=== PATIENT | female | born 1950 | race African-American/Black ===

== ENCOUNTER → 2017-08-14 | Outpatient (CLI) | payer BC, MEDICARE ==
--- NOTE | 2017-08-14 10:20 | RAD ---
DATE: 08/14/2017 EXAM: DIGITAL SCREEN BILAT W/CAD HISTORY: Routine screening COMPARISON: 07/31/2016 This study was interpreted with the benefit of Computerized Aided Detection (CAD). The breast parenchyma demonstrates scattered fibroglandular densities. Findings: The fibroglandular pattern in the breasts is nodular in character. No new or enlarging breast densities are seen. An old breast biopsy marker is again noted laterally on the right. There are coarse benign type calcifications. No suspicious microcalcifications have developed. IMPRESSION: Stable mammograms without evidence of malignancy. BI-RADS CATEGORY: 2 BENIGN FINDING(S) RECOMMENDED FOLLOW-UP: 12M 12 MONTH FOLLOW-UP PQRS compliance statement: Patient information was entered into a reminder system with a target due date for the next mammogram. Mammography is a sensitive method for finding small breast cancers, but it does not detect them all and is not a substitute for careful clinical examination. A negative mammogram does not negate a clinically suspicious finding and should not result in delay in biopsying a clinically suspicious abnormality. "Our facility is accredited by the [employer] Mammography Program."
== END | disposition home or self-care (01) ==
LOC: MAMMO 09:22
PROVIDERS: ATTEND Family Medicine
DX: Z12.31 Encounter for screening mammogram for malignant neoplasm of breast (principal)
CPT/HCPCS: G0202; 77067

== ENCOUNTER → 2018-08-05 | Outpatient (CLI) | payer BC, MEDICARE ==
[~2018-08-05] MED LIST: ACET325T9 PO; AMLO5TAB7 PO; ASPI325T8 PO; CALC600T4 PO; CELE200C PO; FERR325T14 PO; MULT1TAB52 PO; TELM1TAB PO
[2018-08-05 09:31] LABS: BASO % 1 % (0-3); EOS # 0.1 x10^3/uL (0.0-0.7); EOS % 2 % (0-3); HEMATOCRIT 40.6 % (36.0-47.0); HEMOGLOBIN 13.6 g/dL (12.0-15.5); LYMPH # 1.7 x10^3/uL (1.0-4.8); LYMPH % 34 % (24-48); MEAN CORPUSCULAR HEMOGLOBIN 27 pg (25-35); MEAN CORPUSCULAR HGB CONC 34 g/dL (31-37); MEAN CORPUSCULAR VOLUME 82 fL (79-100); MONO # 0.4 x10^3/uL (0.0-1.1); MONO % 8 % (0-9); NEUT # 2.8 x10^3uL (1.8-7.7); NEUT % 56 % (31-73); PLATELET COUNT 261 x10^3/uL (140-400); RED BLOOD COUNT 4.95 x10^6/uL (3.50-5.40); RED CELL DISTRIBUTION WIDTH 14.1 % (11.5-14.5); WHITE BLOOD COUNT 5.1 x10^3/uL (4.0-11.0)
[2018-08-05 09:32] LABS: ALBUMIN 3.8 g/dL (3.4-5.0); CALCIUM 9.5 mg/dL (8.5-10.1); CREATININE 0.9 mg/dL (0.6-1.0); GFR 75.8; POTASSIUM 4.2 mmol/L (3.5-5.1)
[2018-08-05 10:03] LABS: PROTHROMBIN TIME PATIENT 13.7 SEC (11.7-14.0)
--- NOTE | 2018-08-05 13:37 | EKG ---
[facility] [address] [place] [address] Test Date: 2018-08-05 Test Time: 13:28:35 Pat Name: MICHELLE PARDO Department: Room: Gender: F Corporate Quality Engineer: : [id number] Requested By: ERICK BOLTON Order Number: [id number] Reading MD: Tony Watson MD Measurements Intervals [place] Rate: 82 P: 38 MS: 184 QRS: 52 QRSD: 66 T: 69 QT: 390 QTc: 459 Interpretive Statements SINUS RHYTHM VENTRICULAR PREMATURE COMPLEX(ES) CONSIDER PRIOR ANTEROSEPTAL INFARCT Electronically Signed On 08-05-2018 15:45:30 CDT by Tony Watson MD
[2018-08-05 13:58] LABS: BILIRUBIN,URINE NEGATIVE (NEG); CLARITY,URINE CLEAR; COLOR,URINE YELLOW; NITRITE,URINE NEGATIVE (NEG); PH,URINE 7.5; PROTEIN,URINE NEGATIVE (NEG-TRACE); UROBILINOGEN,URINE 0.2 mg/dL (0.2 mg/dL)
[2018-08-05 14:19] LABS: BACTERIA,URINE FEW /HPF (0-FEW); RBC,URINE 0 /HPF (0-2); SQUAMOUS EPITHELIAL CELL,UR OCC /LPF; WBC,URINE OCC /HPF (0-4)
--- NOTE | 2018-08-05 15:34 | RAD ---
PA and lateral chest x-ray without comparison for preop knee surgery, hypertension. FINDINGS: The lungs are clear. The cardiomediastinum is grossly unremarkable. Atherosclerotic calcifications of the abdominal aorta are noted. No significant soft tissue or osseous abnormalities are seen. IMPRESSION: 1. No acute cardiopulmonary abnormality. Electronically signed by: Tony Medina MD (08/05/2018 3:31 PM) [facility]
== END | disposition home or self-care (01) ==
LOC: SURGPAT 13:41
PROVIDERS: ATTEND Orthopaedic Surgery
DX: Z01.818 Encounter for other preprocedural examination (principal); M17.11 Unilateral primary osteoarthritis, right knee; I10 Essential (primary) hypertension; I70.0 Atherosclerosis of aorta; I49.3 Ventricular premature depolarization
CPT/HCPCS: 36415; 71046; 80048; 81001; 82040; 82306; 85025; 85610; 85651; 85730; 87086; 87641; 93005

== ENCOUNTER → 2018-08-13 | Outpatient (CLI) | payer BC, MEDICARE ==
--- NOTE | 2018-08-13 16:09 | CARD ---
MR#: [id number] Date of Study: 08/13/2018 Ordering Physician: WALKER FORTE, Referring Physician: WALKER FORTE, Tech: Jana Hardin APPROVED REPORT EXAM: Two-dimensional and M-mode echocardiogram with Doppler and color Doppler. Other Information Quality : GoodHR: 71bpm Technically limited study due to body habitus. INDICATION Pre-Op RISK FACTORS Hypertension 2D DIMENSIONS Left Atrium(2D)3.4 (1.6-4.0cm)IVSd1.1 (0.7-1.1cm) Aortic Root(2D)2.9 (2.0-3.7cm)LVDd4.7 (3.9-5.9cm) LVOT Diameter2.1 (1.8-2.4cm)PWd1.0 (0.7-1.1cm) LVDs2.7 (2.5-4.0cm)FS (%) 42.1 % SV75.5 mlLVEF(%)73.0 (>50%) Aortic Valve AoV Peak Jaquan.114.4cm/sAoV VTI24.1cm AO Peak GR.5.2mmHgLVOT Peak Jaquan.90.4cm/s LVOT VTI 22.09cmAO Mean GR.3mmHg [place] (VMAX)2.35aq6TVW (VTI)3.15cm2 Mitral Valve MV E Ypqhotul06.7cm/sMV DECEL LZPD268ld MV A Ocokdibc78.4cm/sMV LQB19qr E/A Ratio0.8MVA (PHT)3.19cm2 TDI E/Lateral E'6.0E/Medial E'6.6 Pulmonary Valve PV Peak Krgfoumv71.8cm/sPV Peak Grad.4mmHg Tricuspid Valve TR P. Kzkicxpe599nt/sRAP SMNNQONK0fsXl TR Peak Gr.27vgGbRXNE05tvHn Pulmonary Vein S1 Jphyiiqm13.3cm/sD2 Cukqaqcy07.3cm/s PVa wqabdkct297dpct LEFT VENTRICLE The left ventricle is normal size. There is borderline concentric left ventricular hypertrophy. The l eft ventricular systolic function is normal and the ejection fraction is within normal range. The Eje ction Fraction is 60-65%. There is normal LV segmental wall motion. Transmitral Doppler flow pattern is Grade I-abnormal relaxation pattern. RIGHT VENTRICLE The right ventricle is normal size. There is normal right ventricular wall thickness. The right ventr icular systolic function is normal. ATRIA The left atrium size is normal. The right atrium size is normal. The interatrial septum is intact wit h no evidence for an atrial septal defect or patent foramen ovale as noted on 2-D or Doppler imaging. AORTIC VALVE The aortic valve is calcified but opens well. Doppler and Color Flow revealed trace aortic regurgitat ion. Calculated aortic valve area is 3 cm2 with maximum pressure gradient of 5 mmHg and mean pressure gradient of 3 mmHg. MITRAL VALVE The mitral valve is thickened but opens well. There is no mitral valve stenosis. Doppler and Color-fl ow revealed trace mitral regurgitation. TRICUSPID VALVE The tricuspid valve is not well visualized. Doppler and Color Flow revealed trace tricuspid regurgita tion. There is no tricuspid valve stenosis. PULMONIC VALVE The pulmonic valve is not well visualized. Doppler and Color Flow revealed no pulmonic valvular regur gitation. There is no pulmonic valvular stenosis. GREAT VESSELS The aortic root is normal in size. The IVC is normal in size and collapses >50% with inspiration. PERICARDIAL EFFUSION There is no evidence of significant pericardial effusion. Critical Notification Critical Value: No <Conclusion> There is borderline concentric left ventricular hypertrophy. The left ventricular systolic function is normal and the ejection fraction is within normal range. Th e Ejection Fraction is 60-65%. There is normal LV segmental wall motion. Signed by : Tony Watson, Electronically Approved : 08/13/2018 16:08:31
== END | disposition home or self-care (01) ==
LOC: ECHO 14:25
PROVIDERS: ATTEND Internal Medicine Cardiovascular Disease
DX: R94.31 Abnormal electrocardiogram [ECG] [EKG] (principal); I11.9 Hypertensive heart disease without heart failure
CPT/HCPCS: 93306

== ENCOUNTER → 2018-08-16 | Outpatient (CLI) | payer BC, MEDICARE ==
--- NOTE | 2018-08-16 13:20 | RAD ---
DATE: 08/16/2018 EXAM: DIGITAL SCREEN BILAT W/CAD HISTORY: Routine screening COMPARISON: 08/14/2017 This study was interpreted with the benefit of Computerized Aided Detection (CAD). Breast Density: SCATTERED The breast parenchyma shows scattered fibroglandular densities. Breast parenchyma level B. FINDINGS: Small smooth nodules are again noted in both breasts. No breast biopsy marker is present laterally on the right. No new or enlarging breast densities are seen. A coarse benign type calcification is again noted on the right. No suspicious microcalcifications have developed. IMPRESSION: Stable mammograms without evidence of malignancy. BI-RADS CATEGORY: 2 BENIGN FINDING(S) RECOMMENDED FOLLOW-UP: 12M 12 MONTH FOLLOW-UP PQRS compliance statement: Patient information was entered into a reminder system with a target due date for the next mammogram. Mammography is a sensitive method for finding small breast cancers, but it does not detect them all and is not a substitute for careful clinical examination. A negative mammogram does not negate a clinically suspicious finding and should not result in delay in biopsying a clinically suspicious abnormality. "Our facility is accredited by the [employer] Mammography Program."
== END | disposition home or self-care (01) ==
LOC: MAMMO 11:58
PROVIDERS: ATTEND Family Medicine
DX: Z12.31 Encounter for screening mammogram for malignant neoplasm of breast (principal)
CPT/HCPCS: 77067

== ENCOUNTER 2018-08-20 06:35 | Inpatient (IN) | payer BC, MEDICARE ==
--- NOTE | 2018-08-19 13:01 | PDOC1 ---
History and Physical Date of Admission Date of Admission DATE: 08/20/18 Identification/Chief Complaint Chief Complaint right knee osteoarthritis pain Source Source: Chart review History of Present Illness History of Present Illness The patient is a 67 y/o female with right knee pain. Patient has received three Orthovisc injections or corticosteroid or viscosupplementation. She states she has not had symptomatic relief from the injections and is ready for total knee arthroplasty. She presents ambulating without assistive devices. Patient also notes she fell 4 days ago and has increased concern for falls. Past Medical History Cardiovascular: HTN Past Surgical History Past Surgical History: No pertinent history Family History Family History: Hypertension Social History Smoke: No ALCOHOL: none Drugs: None Current Medications Current Medications Current Medications Ondansetron HCl (Zofran) 4 mg PRN Q6HRS PRN IV NAUSEA/VOMITING; Start 08/20/18 at 07:00; Stop 08/21/18 at 06:59 Fentanyl Citrate (Fentanyl 2ml Vial) 25 mcg PRN Q5MIN PRN IV MILD PAIN; Start 08/20/18 at 07:00; Stop 08/21/18 at 06:59 Fentanyl Citrate (Fentanyl 2ml Vial) 50 mcg PRN Q5MIN PRN IV MODERATE TO SEVERE PAIN; Start 08/20/18 at 07:00; Stop 08/21/18 at 06:59 Ringer's Solution 1,000 ml @ 30 mls/hr Q24H IV ; Start 08/20/18 at 07:00; Stop 08/20/18 at 18:59 Lidocaine HCl (Xylocaine-Mpf 1% 2ml Vial) 2 ml PRN 1X PRN ID IV START; Start 08/20/18 at 07:00; Stop 08/21/18 at 06:59 Prochlorperazine Edisylate (Compazine) 5 mg PACU PRN PRN IV NAUSEA, MRX1; Start 08/20/18 at 07:00; Stop 08/21/18 at 06:59 Active Scripts Active Reported Calcium (Calcium Carbonate) 600 Mg Tablet 600 Mg PO DAILY Multivitamins (Multivitamin) 1 Each Tablet 1 Each PO DAILY Ferrous Sulfate 325 Mg Tablet 325 Mg PO DAILY Micardis Hct 80-25 Mg Tablet (Telmisartan/Hydrochlorothiazid) 1 Each Tablet 0.5 Tab PO DAILY Amlodipine Besylate 5 Mg Tablet 5 Mg PO DAILY Aspirin 325 Mg Tablet 325 Mg PO Tylenol (Acetaminophen) 325 Mg Tablet 325 Mg PO Allergies Allergies: Coded Allergies: shellfish derived (Verified Allergy, Intermediate, Anaphylaxis, 08/05/18) hydrocodone (Verified Adverse Reaction, Intermediate, Itching, 08/05/18) Physical Exam General: Alert, Oriented X3, Cooperative, No acute distress HEENT: Atraumatic, EOMI Lungs: Normal air movement Heart: RRR Abdomen: Soft Extremities: No clubbing, No cyanosis, Normal pulses, Other (RIGHT KNEE: mildly antalgic gait. There is varus alignment. No masses. No detectable effusion. Tenderness on the medial and lateral joint lines. Range of motion is 3 -100 degrees. There is pain at the extremes of motion. Light touch sensation is intact. No edema and no varicosities.) Skin: No rashes, No breakdown, No significant lesion Neuro: Normal speech, Sensation intact Psych/Mental Status: Mental status NL, Mood NL Images Images IMAGING REPORT Joint survey, hips knees and ankles Clinical information: Preoperative for total knee arthroplasty Comparison: None. Findings Bones: The angle between the right hip-ankle mechanical axis and the femoral shaft is 5 degrees. The angle between the left hip-ankle mechanical axis and the femoral shaft is 5 degrees. The right hip to ankle alignment shows a degrees of varus The left hip to ankle alignment shows 5 degrees of varus. Joints: There is narrowing of the right knee joint medially. There is narrowing of the left knee joint medially. The hips and ankles show minimal degenerative changes. Soft tissue: Normal. Impression: Varus alignment of the right lower extremity Varus alignment of the left lower extremity. The difference between the mechanical axis and femoral shaft anatomic axis is 5 degrees bilaterally. Dictated and Signed Using Voice Recognition Software Edson Spencer MD VTE Prophylaxis Ordered VTE Prophylaxis Devices: Yes VTE Pharmacological Prophylaxi: Yes Assessment/Plan Assessment/Plan Right knee osteoarthritis pain. The patient is a 67 year old female with right knee osteoarthritis. She would like to proceed with total knee replacement. We will send them to the [place] [facility] preoperatively. We discussed the risks and benefits of knee replacement including bleeding, infection, post-operative stiffness, instability, jaciel-prosthetic fracture, dvt and PE or other potential surgical or anesthetic complications. All questions were answered. Patient would like to proceed with right total knee arthroplasty to improve the pain with activity. Followup 10-14 days after surgery. JOSUE TORRES Aug 19, 2018 13:01
[~2018-08-20] VITALS: Ht 156.2 cm; Wt 63.5 kg
[2018-08-20] VITALS (8 sets, daily range): BP systolic 99–136; BP diastolic 53–76
[~2018-08-20 06:35] MED LIST changes: +ACETAMINOPHEN 500 MG TABLET PO PRN; -CELE200C PO; +CELECOXIB 100 MG CAPSULE. PO PRN; +MORPHINE SULFATE 5 MG, KETOROLAC 30MG VIAL 30 MG, ROPIVacaine 0.5% PF 60 ML, EPINEPHrin... INT ART ONE; +TRANEXAMIC ACID 1,000 MG in IV NS 50ML -- 1ST BAG INJ ONE
[2018-08-20] MEDS ORDERED: LIDOCAINE 1% PF 2 ML VIAL. ID PRN (07:00)
[2018-08-20] MEDS ORDERED: ONDANSETRON PF 4 MG/2 ML VIAL. IV PRN (07:00)
[2018-08-20] MEDS ORDERED: IV RINGERS,LACTATED 1000ML 1,000 ML IV SCH (07:00)
[2018-08-20] MEDS ORDERED: fentaNYL PF VIAL 100 MCG/2 ML VIAL IV PRN ×3 (07:00→11:45)
[2018-08-20] MEDS ORDERED: PROCHLORPERAZINE 10 MG/2 ML VIAL. IV PRN ×2 (07:00→11:45)
[2018-08-20] MEDS ORDERED: TOBRAMYCIN POWDER 1.2 GM VIAL. ONE (07:08)
[2018-08-20] MEDS ORDERED: VANCOMYCIN 1 GM VIAL. ONE (07:08)
[2018-08-20] MEDS ORDERED: CELE200C PO (07:45)
[2018-08-20] MEDS ORDERED: TRANEXAMIC ACID 1,000 MG in IV NS 50ML -- 2ND BAG INJ ONE (08:00)
[2018-08-20] MEDS ORDERED: MIDAZOLAM HCL/PF 2 MG/2 ML VIAL. ONE (09:07)
[2018-08-20] MEDS ORDERED: PROPOFOL 20 ML IV ONE (09:08)
[2018-08-20] MEDS ORDERED: fentaNYL PF VIAL 250 MCG/5 ML VIAL ONE (09:08)
[2018-08-20] MEDS ORDERED: LIDOCAINE 2% PF Vial for OR 5 ML VIAL. ONE (09:08)
[2018-08-20] MEDS ORDERED: PHENYLEPHRINE in 0.9% NACL PF 1 MG/10 ML SYRINGE. IV ONE (09:34)
[2018-08-20] MEDS ORDERED: ONDANSETRON PF 4 MG/2 ML VIAL. ONE (09:40)
[2018-08-20] MEDS ORDERED: SEVOFLURANE > 120 MINUTES. IH ONE (09:40)
[2018-08-20] MEDS ORDERED: DEXAMETHASONE SOD PHOS 20 MG/5 ML VIAL. ONE (09:40)
[2018-08-20] MEDS ORDERED: ePHEDrine PF IN SALINE 50 MG/5 ML DISP.SYRIN IV ONE (09:51)
--- NOTE | 2018-08-20 11:24 | PDOC4 ---
Operative Note Operative Note Date of Procedure: August 20, 2018 Pre-Op Diagnosis: Osteoarthritis right knee Post-Op Diagnosis: Osteoarthritis right knee Procedure: right total knee arthroplasty Surgeon: Erick Spencer MD Autoglazier: Maddison Chamberlain PA-C Anesthesia: General EBL: 100 mL Specimens Obtained: right knee bone and soft tissue Complications: none Implant Company: [email or web address] Drains: hemovac plus pain catheter Tourniquet time: 43 Minutes Tourniquet Pressure: 350 mm Hg Indications for Procedure: Arthritis pain unrelieved by nonoperative management Findings: Severe osteoarthritis with bone on bone contact medially with eburnated and red appearing medial tibial bone, and similar eburnation into the marrow in the trochlea. Large osteophytes throughout. Bone quality suspicious for osteoporosis, softer than expected at this age. Implants used: Size 3 right bicruciate stabilized Journey II BCS Oxinium femoral component, size 3 right Journey nonporous tibial baseplate, size 3-4 13 mm right Journey II BCS XLPE articular insert, 32 mm oval Stephenie II resurfacing patellar component Procedure in Detail: The patient was identified in the preoperative holding area, and the correct right lower extremity was marked by me. The patient was taken to the operating room where the patient was anesthetized by the Department of Anesthesia. Preoperative antibiotics were given intravenously. Tranexamic acid 1 g was given intravenously for intraoperative hemostasis. A "time-out" procedure was performed. The patient was positioned supine on the operative table with a tourniquet on the upper right thigh. The right lower limb was thoroughly scrubbed, then sterile surgical prep solution was applied, and the limb was draped in sterile fashion. An impervious stockinet and adhesive drape were used such that the skin was entirely covered. An Page leg lee was used. The operating team wore personal exhaust-ventilated hoods. The limb exsanguinated with an Esmarch bandage, and the tourniquet was inflated. A midline skin incision was made with a scalpel using the patella and tibial tubercle as landmarks. Electrocautery was used for hemostasis. My senior underwriting assistant used rake retractors. A medial parapatellar arthrotomy incision was used with extension into the distal quadriceps tendon. The patella was retracted laterally and Hohmann retractors were now used by my senior underwriting assistant. Excess synovium, the menisci, and the cruciate ligaments were resected sharply. The patella was assessed and excess synovium and osteophytes around the patellar articulation were removed. The patella was measured with a caliper, cut freehand with a saw using caliper measurements, sized, and then drilled for an oval three-pegged patella component. Periarticular anesthetic injection was used in the suprapatellar pouch and distal quadriceps muscle. Whitesides's line and the transepicondylar axis were marked on the femur. An intra-medullary 5 degree cutting guide was pinned to the femur, and a distal femoral cut was made with an oscillating saw. No additional distal femoral resection was required. My senior underwriting assistant held Hohmann retractors and an [facility] retractor to protect the medial and lateral collateral ligaments, the patellar tendon, the skin and the other soft tissues. A posterior referencing guide was applied with external rotation of 3 to match Whitesides line. A 5-in-1 Journey II cutting guide was then applied and pinned to the femur. The posterior, anterior, and all chamfer cuts were made with the oscillating saw. An extramedullary guide was pinned to the tibia and rotational alignment and the planned resection thickness assessed. An external alignment ashanti was used to verify the planned cut in the varus-valgus plane and regarding posterior slope referencing the tibial tubercle, the tibial shaft, the ankle joint, and the second metatarsal. The upper tibia was cut made with an oscillating saw. My senior underwriting assistant held Hohmann retractors and a posterior cruciate ligament retractor to protect the medial and lateral collateral ligaments, the patellar tendon, the skin, the peroneal nerve and the other soft tissues. The upper tibia was sized with a trial baseplate. The posterior compartment was cleared of osteophytes and loose bodies. Periarticular anesthetic injection was used in the posterior compartment. The box cut for a posterior stabilized component was made. A preliminary reduction was performed with a trial femur, trial tibial baseplate and trial polyethylene. Soft-tissue balancing was now performed, and extension and rotation of the alignments was checked using a guide ashanti in the tibial trial and a guide pin in the femur. No additional releases were required. The stability was assessed using different thicknesses of tibial articular surface to find satisfactory stability and good range of motion. The rotation of the tibial component was marked on the upper tibia. Final trial reduction was now performed verifying patella tracking and tibiofemoral stability and alignment. The tibia preparation was completed with a drill, saw, and fin punch at the previously noted rotation. The final implants were verified and opened. Outer gloves were changed by the operating team. The bone cuts were washed thoroughly with the [place] InterPulse device and dried. I asked Ms. Chamberlain to leave the room while the cement was mixed. Two packages of Contreras + Nephew Rally MV bone cement were mixed in powdered form with Vancomycin 1gm and Tobramycin 1.2 gm, and then vacuum-mixed with the monomer, and placed into a cement gun. The cut surfaces of the bone were thoroughly dried with Mcgovern-tip suction and with laparotomy sponges for cement interdigitation. The final components were cemented into place. The knee was kept at full extension while the cement hardened, and excess cement was removed. Tranexamic acid 1 g was redosed intravenously for additional intraoperative hemostasis. The tourniquet was released, and electrocautery was used for hemostasis. A final periarticular anesthetic injection was used for pain relief. Ms. Chamberlain scrubbed, hooded, gowned, gloved, and returned to the case. A final check of ultum-fn-gvohoo and stability was made, and the polyethylene implant final size was chosen. The polyethylene implant was secured to the tibial baseplate, and the knee was reduced a final time and range of motion and stability was confirmed. Thorough irrigation was used. Hemovac and pain catheter were used.The arthrotomy was closed with interrupted [id number]-yk-uhnul # 1 PDS suture. The arthrotomy incision was then run with #1 STRATAFIX Symmetric PDS Plus Knotless suture. The subcutaneous tissues were closed with #2-0 Vicryl by my senior underwriting assistant. The skin was approximated with lisa by my senior underwriting assistant. The skin incision was then covered and reinforced with EUFEMIA single use negative pressure wound therapy dressing by my senior underwriting assistant. Needle and sponge counts were correct. There were no apparent complications. The patient returned to the recovery room in stable condition. ERICK SPENCER MD Aug 20, 2018 11:24
[2018-08-20] MEDS ORDERED: ZOLPIDEM 5 MG TABLET. PO PRN (11:45)
[2018-08-20] MEDS ORDERED: PROCHLORPERAZINE 5 MG TABLET. PO PRN (11:45)
[2018-08-20] MEDS ORDERED: oxyCODONE/APAP 5/325 1 TAB TABLET PO PRN (11:45)
[2018-08-20] MEDS ORDERED: MORPHINE SULFATE 10 MG/ML VIAL. IV PRN (11:45)
[2018-08-20] MEDS ORDERED: METOCLOPRAMIDE HCL 10 MG/2 ML VIAL. IV PRN (11:45)
[2018-08-20] MEDS ORDERED: oxyCODONE/APAP 7.5/325 1 TAB TABLET PO PRN (11:45)
[2018-08-20] MEDS ORDERED: diphenhydrAMINE HCL 25 MG CAPSULE PO PRN (11:45)
[2018-08-20] MEDS ORDERED: 0.9 % SODIUM CHLORIDE 10 ML DISP.SYRIN. IV PRN (11:45)
[2018-08-20] MEDS ORDERED: MORPHINE SULFATE 2 MG/ML VIAL. IV PRN (11:45)
[2018-08-20] MEDS ORDERED: DEXTROSE 50% 25 GM / 50ML DISP.SYRIN. IV PRN (11:45)
[2018-08-20] MEDS ORDERED: traMADol 50 MG TABLET PO PRN (11:45)
[2018-08-20] MEDS ORDERED: MORPHINE SULFATE 4 MG/ML VIAL. IV PRN ×2 (11:45)
[2018-08-20] MEDS ORDERED: CALCIUM CARBONATE 500 MG TAB.CHEW PO PRN (11:45)
[2018-08-20] MEDS ORDERED: fentaNYL PF VIAL 100 MCG/2 ML VIAL ONE (12:00)
[2018-08-20] MEDS: fentaNYL PF VIAL 100 MCG/2 ML VIAL IV PRN ×2 (12:05→12:55)
--- NOTE | 2018-08-20 12:11 | RAD ---
Two-view right knee dated 08/20/2018. No comparison available. Clinical data indication: Post knee arthroplasty. FINDINGS: AP and lateral views obtained. Interval total knee arthroplasty. Femoral and tibial components are intact. No periprosthetic fracture or malalignment. Overlying skin lisa with soft tissue swelling and soft tissue gas. Postsurgical changes of the patella. Suprapatellar drain in place. IMPRESSION: Status post right knee arthroplasty. Electronically signed by: Nguyễn aGmboa MD (08/20/2018 12:08 PM) [facility]
[2018-08-20] MEDS: IV DEXTROSE 5 %-0.45 % NACL 1,000 ML IV SCH (14:47)
[2018-08-20] MEDS: FERROUS SULFATE 325 MG TABLET. PO SCH (17:00)
[2018-08-20] MEDS: KETOROLAC 30MG VIAL 30 MG, BUPIVACAINE MPF 0.25% 20 ML, EPINEPHrine 0.5 MG in TOTAL VOL... INT ART SCH (18:07)
[2018-08-20] MEDS: CELECOXIB 100 MG CAPSULE. PO SCH (21:39)
[2018-08-20] MEDS: ASPIRIN ENTERIC COATED 325 MG TABLET.DR. PO SCH (21:39)
[2018-08-21] MEDS: IV DEXTROSE 5 %-0.45 % NACL 1,000 ML IV SCH (01:00)
[2018-08-21] MEDS: ACETAMINOPHEN 325 MG TABLET. PO PRN ×4 (02:49→20:17)
[2018-08-21 03:14] VITALS: BP 105/63
[2018-08-21] MEDS ORDERED: MAGNESIUM HYDROXIDE 2,400 MG/30 ML ORAL.SUSP. PO PRN (06:00)
[2018-08-21] MEDS: KETOROLAC 30MG VIAL 30 MG, BUPIVACAINE MPF 0.25% 20 ML, EPINEPHrine 0.5 MG in TOTAL VOL... INT ART SCH (06:10)
[2018-08-21 06:36] VITALS: BP 126/73
[2018-08-21] MEDS: CALCIUM CARBONATE 500 MG TABLET PO SCH (08:40)
[2018-08-21] MEDS: CELECOXIB 100 MG CAPSULE. PO SCH ×2 (08:40→20:17)
[2018-08-21] MEDS: ASPIRIN ENTERIC COATED 325 MG TABLET.DR. PO SCH ×2 (08:40→20:17)
[2018-08-21] MEDS: MULTIVITAMIN with MINERAL TABLET. PO SCH (08:41)
[2018-08-21] MEDS: FERROUS SULFATE 325 MG TABLET. PO SCH ×2 (08:41→17:02)
[2018-08-21] MEDS: SENNOSIDES/DOCUSATE 8.6/50MG TABLET. PO SCH (08:41)
[2018-08-21] MEDS: LOSARTAN POTASSIUM 50 MG TABLET. PO SCH (08:47)
[2018-08-21] MEDS: hydroCHLOROthiazide 12.5 MG CAPSULE PO SCH (08:48)
[2018-08-21] MEDS: amLODIPine BESYLATE 5 MG TABLET PO SCH (08:48)
[2018-08-21] MEDS ORDERED: NON FORMULARY ITEM (Multivitamin (Multivitamins) 1 EACH) PO SCH (09:00)
--- NOTE | 2018-08-21 14:38 | PDOC ---
PROGRESS NOTES Subjective Subjective Doing well. Pain controlled. Objective Vital Signs Vital Signs Date Time Temp Pulse Resp B/P (MAP) Pulse Ox O2 Delivery O2 Flow Rate FiO2 08/21/18 08:48 80 104/60 08/21/18 08:30 Room Air 08/21/18 06:36 97.7 16 96 97.7 08/20/18 13:00 2.0 Physical Exam Postop dressing dry and intact. Hemovac and pain catheter in place. Thigh and calf soft and nontender with negative Homans sign. Good AROM toes, foot, and ankle, with no sign of neurovascular injury nor compartment syndrome. Imaging Postoperative knee x-rays report reviewed, images independently reviewed. Satisfactory TKA alignment with no apparent complications. Assessment Assessment POD #1 TKA Plan Plan of Care Continue POC including PT and DVT prophylaxis. JOSUE TORRES Aug 21, 2018 14:37
[2018-08-21 16:00] VITALS: BP 125/61
[2018-08-21] MEDS ORDERED: BISACODYL 10 MG SUPP.RECT. PR PRN (16:00)
[2018-08-21 18:15] VITALS: BP 124/70
[2018-08-22 04:49] LABS: HEMOGLOBIN 9.6 g/dL (12.0-15.5)
[2018-08-22 05:15] VITALS: BP 115/63
[2018-08-22 08:08] VITALS: BP 121/78
[2018-08-22] MEDS: ASPIRIN ENTERIC COATED 325 MG TABLET.DR. PO SCH ×2 (08:10→21:01)
[2018-08-22] MEDS: hydroCHLOROthiazide 12.5 MG CAPSULE PO SCH (08:10)
[2018-08-22] MEDS: FERROUS SULFATE 325 MG TABLET. PO SCH ×2 (08:10→21:00)
[2018-08-22] MEDS: SENNOSIDES/DOCUSATE 8.6/50MG TABLET. PO SCH (08:10)
[2018-08-22] MEDS: amLODIPine BESYLATE 5 MG TABLET PO SCH (08:10)
[2018-08-22] MEDS: CALCIUM CARBONATE 500 MG TABLET PO SCH (08:11)
[2018-08-22] MEDS: MULTIVITAMIN with MINERAL TABLET. PO SCH (08:11)
[2018-08-22] MEDS: traMADol 50 MG TABLET PO PRN ×2 (08:11→21:00)
[2018-08-22] MEDS: CELECOXIB 100 MG CAPSULE. PO SCH ×2 (08:11→21:00)
[2018-08-22] MEDS: LOSARTAN POTASSIUM 50 MG TABLET. PO SCH (09:00)
--- NOTE | 2018-08-22 09:08 | PATHOLOGY ---
[facility] Accession Number: [id number] . 01 Material submitted: . RIGHT KNEE BONE . 01 Clinical history: . Right knee osteoarthritis pain . 02 Diagnosis: Segments of bone and soft tissue, right total knee arthroplasty: - Advanced degenerative arthritis. - Mild nonspecific papillary chronic synovitis. . (JPM:ror engineer; 08/21/2018) MBR/08/21/2018 . 02 Electronically signed: . Desmond Sheikh MD, Pathologist NPI- [id number] . 01 Gross description: . The specimen is received in formalin, labeled "Thais, Nguyen, right knee bone" and consists of multiple fragments of bone including the tibial plateau and soft tissue measuring 12.0 x 11.0 x 3.0 cm. The meniscus is present. Multiple osteophytes are present. The articular surfaces show areas of eburnation measuring up to 3.1 cm. Journe[employer]ice [employer] sections are submitted in A1 following decalcification. (SDY; 08/20/2018) SYU/SYU . 02 Pathologist provided ICD-10: M17.11, M65.861 . 02 CPT . 177428, 038660 Specimen Comment: A courtesy copy of this report has been sent to Specimen Comment: [phone], . Specimen Comment: Report sent to / DR WEST Specimen Comment: A duplicate report has been generated due to demographic updates. Performed at: 01 [facility] [address] [id number] MD Deshaun Lee MD Phone: [phone] Performed at: 02 [facility] [address] [place], [place] [id number] MD Desmond Sheikh MD Phone: [phone]
[2018-08-22] MEDS: ACETAMINOPHEN 325 MG TABLET. PO PRN (09:47)
--- NOTE | 2018-08-22 12:51 | PDOC ---
PROGRESS NOTES Subjective Subjective Pain controlled. Objective Vital Signs Vital Signs Date Time Temp Pulse Resp B/P (MAP) Pulse Ox O2 Delivery O2 Flow Rate FiO2 08/22/18 12:43 Room Air 08/22/18 09:15 97 2.0 08/22/18 08:11 20 08/22/18 08:10 78 121/78 08/22/18 05:15 98.7 98.7 Physical Exam Knee EUFEMIA dressing with spotty drainage only, and slight bleeding from hemovac site. Calf and thigh soft and NT. Good AROM toes, foot and ankle with negative Homans and no sign of neurovascular injury nor compartment syndrome. Pain catheter and hemovac have been removed. Not yet safely ambulating with walker. Labs Laboratory Tests Test 08/22/18 04:35 Hemoglobin 9.6 g/dL (12.0-15.5) Hematocrit 29.0 % (36.0-47.0) Mean Corpuscular Hemoglobin Concent 33 g/dL (31-37) Laboratory Tests Test 08/22/18 04:35 Hemoglobin 9.6 g/dL (12.0-15.5) Hematocrit 29.0 % (36.0-47.0) Mean Corpuscular Hemoglobin Concent 33 g/dL (31-37) Imaging Postoperative knee x-rays report reviewed, images independently reviewed. Satisfactory TKA alignment with no apparent complications. Assessment Assessment POD 2 after TKA Plan Plan of Care Continue PT and DVT prophylaxis. Discharge planning for tomorrow. ERICK BOLTON MD Aug 22, 2018 12:51
[2018-08-22 18:29] VITALS: BP 105/67
[2018-08-23 06:31] VITALS: BP 95/59
[2018-08-23 07:44] LABS: HEMATOCRIT 28.8 % (36.0-47.0); HEMOGLOBIN 9.6 g/dL (12.0-15.5)
[2018-08-23] MEDS: LOSARTAN POTASSIUM 50 MG TABLET. PO SCH (08:37)
[2018-08-23] MEDS: hydroCHLOROthiazide 12.5 MG CAPSULE PO SCH (08:38)
[2018-08-23] MEDS: CALCIUM CARBONATE 500 MG TABLET PO SCH (08:39)
[2018-08-23] MEDS: FERROUS SULFATE 325 MG TABLET. PO SCH (08:39)
[2018-08-23] MEDS: SENNOSIDES/DOCUSATE 8.6/50MG TABLET. PO SCH (08:39)
[2018-08-23] MEDS: MULTIVITAMIN with MINERAL TABLET. PO SCH (08:39)
[2018-08-23] MEDS: CELECOXIB 100 MG CAPSULE. PO SCH (08:39)
[2018-08-23] MEDS: traMADol 50 MG TABLET PO PRN ×2 (08:40→12:54)
[2018-08-23] MEDS: ASPIRIN ENTERIC COATED 325 MG TABLET.DR. PO SCH (08:40)
[2018-08-23] MEDS: amLODIPine BESYLATE 5 MG TABLET PO SCH (08:42)
--- NOTE | 2018-08-23 11:17 | PDOC3 ---
Discharge Summary Visit Information Date of Admission: Aug 20, 2018 Date of Discharge: Aug 23, 2018 Admitting Diagnosis: right knee osteoarthritis pain Brief Hospital Course Allergies Allergies Coded Allergies Type Severity Reaction Last Updated Verified shellfish derived Allergy Intermediate Anaphylaxis 08/20/18 Yes hydrocodone Adverse Reaction Intermediate Itching 08/20/18 Yes Vital Signs Vital Signs Date Time Temp Pulse Resp B/P (MAP) Pulse Ox O2 Delivery O2 Flow Rate FiO2 08/23/18 08:42 89 95/59 08/23/18 08:40 20 08/23/18 08:00 Room Air 08/23/18 06:31 98.6 96 98.6 08/22/18 09:15 2.0 Lab Results Laboratory Tests Test 08/22/18 04:35 08/23/18 06:35 Hemoglobin 9.6 g/dL (12.0-15.5) 9.6 g/dL (12.0-15.5) Hematocrit 29.0 % (36.0-47.0) 28.8 % (36.0-47.0) Mean Corpuscular Hemoglobin Concent 33 g/dL (31-37) 33 g/dL (31-37) Laboratory Tests Test 08/23/18 06:35 Hemoglobin 9.6 g/dL (12.0-15.5) Hematocrit 28.8 % (36.0-47.0) Mean Corpuscular Hemoglobin Concent 33 g/dL (31-37) Brief Hospital Course 67 year old female who presented with knee osteoarthritis, for elective total knee arthroplasty. The patient underwent total knee arthroplasty under general anesthesia the day of admission. Perioperative antibiotics and DVT prophylaxis were used. Postoperatively physical therapy and case management were consulted. The patient progressed and is stable for discharge. Discharge Information Condition at Discharge: Stable Follow Up: Weeks (2) Disposition/Orders: D/C to Home Scheduled Amlodipine Besylate (Amlodipine Besylate), 5 MG PO DAILY, (Reported) Calcium Carbonate (Calcium), 600 MG PO DAILY, (Reported) Ferrous Sulfate (Ferrous Sulfate), 325 MG PO DAILY, (Reported) Multivitamin (Multivitamins), 1 EACH PO DAILY, (Reported) Telmisartan/Hydrochlorothiazid (Micardis Hct 80-25 Mg Tablet), 0.5 TAB PO DAILY, (Reported) Scheduled PRN Celecoxib (Celebrex), 400 MG PO ONCE PRN for other, (Reported) Miscellaneous Medications Acetaminophen (Tylenol), 325 MG PO, (Reported) Aspirin (Aspirin), 325 MG PO, (Reported) Patient Instructions Patient Instructions Patient Instructions Continue to WBAT with walker. Keep dressing dry and intact. F/U with [facility] in 10-14 days. Call for appointment. Physical therapy for TKA Continue DVT prophylaxis with aspirin 325mg twice daily. JOSUE TORRES Aug 23, 2018 11:16
--- NOTE | 2018-08-23 11:33 | PDOC ---
PROGRESS NOTES Subjective Subjective Diong well. Discharge planning to home this afternoon. Objective Vital Signs Vital Signs Date Time Temp Pulse Resp B/P (MAP) Pulse Ox O2 Delivery O2 Flow Rate FiO2 08/23/18 08:42 89 95/59 08/23/18 08:40 20 08/23/18 08:00 Room Air 08/23/18 06:31 98.6 96 98.6 08/22/18 09:15 2.0 Physical Exam EFUEMIA intact and dry. Intact blister on lateral knee. Calf soft and nontender with negative Geo's sign. Good dorsiflexion and plantarflexion at foot. Peripheral pulses and light touch sensation intact. Labs Laboratory Tests Test 08/22/18 04:35 08/23/18 06:35 Hemoglobin 9.6 g/dL (12.0-15.5) 9.6 g/dL (12.0-15.5) Hematocrit 29.0 % (36.0-47.0) 28.8 % (36.0-47.0) Mean Corpuscular Hemoglobin Concent 33 g/dL (31-37) 33 g/dL (31-37) Laboratory Tests Test 08/23/18 06:35 Hemoglobin 9.6 g/dL (12.0-15.5) Hematocrit 28.8 % (36.0-47.0) Mean Corpuscular Hemoglobin Concent 33 g/dL (31-37) Assessment Assessment POD #1 right TKA Plan Plan of Care Discharge to home this afternoon after therapy. Continue PT for TKA. Continue ASA 325mg twice daily for DVT ppx. F/u in 10-14 days. JOSUE TORRES Aug 23, 2018 11:32
[2018-08-23] MEDS ORDERED: FERR325T14 PO (12:46)
[2018-08-23 13:24] VITALS: BP 107/63
== END 2018-08-23 15:30 | disposition home or self-care (01) | DRG 470 ==
LOC: OPSVCIP 06:35 → 4 SOUTHEST 13:01
PROVIDERS: ADMIT Orthopaedic Surgery; ATTEND Orthopaedic Surgery
PROC: 0SRC069 Replacement of Right Knee Joint with Oxidized Zirconium on Polyethylene Synthetic Substitute, Cemented, Open Approach (ICD-10-PCS; principal; 2018-08-20 09:30)
DX: M17.11 Unilateral primary osteoarthritis, right knee (principal); I10 Essential (primary) hypertension; Z82.49 Family history of ischemic heart disease and other diseases of the circulatory system; Z79.899 Other long term (current) drug therapy; Z88.8 Allergy status to other drugs, medicaments and biological substances; Z91.013 Allergy to seafood
CPT/HCPCS: 36415; 73560; 85014; 85018; 86850; 86900; 86901; 88305; 88311; A7015; C1713; J0171; J0690; J0780; J1100; J1885; J2001; J2250; J2270; J2370; J2405; J2704; J2795; J3010; J3260; J3370; J3490; J7030; J7120; Q0163; 97110; 97116; 97150; 97530; 97535; A4461; C1769

== ENCOUNTER → 2019-03-24 | Outpatient (CLI) | payer BC ==
[2018-08-22 08:10] VITALS: BP 121/78
[~2019-03-24] MED LIST changes: -ACETAMINOPHEN 500 MG TABLET PO PRN; +AMLO5TAB10 PO; -AMLO5TAB7 PO; +CELE200C PO; -CELECOXIB 100 MG CAPSULE. PO PRN; -MORPHINE SULFATE 5 MG, KETOROLAC 30MG VIAL 30 MG, ROPIVacaine 0.5% PF 60 ML, EPINEPHrin... INT ART ONE; -TRANEXAMIC ACID 1,000 MG in IV NS 50ML -- 1ST BAG INJ ONE
== END | disposition home or self-care (01) ==
LOC: LAB 12:00
PROVIDERS: ATTEND Orthopaedic Surgery
DX: Z96.651 Presence of right artificial knee joint (principal)
CPT/HCPCS: 36415; 85651; 86140

== ENCOUNTER → 2019-09-03 | Outpatient (CLI) | payer BC, MEDICARE ==
[2018-08-22 08:10] VITALS: BP 121/78
--- NOTE | 2019-09-03 15:51 | RAD ---
DATE: 09/03/2019. EXAM: MAMMO ALDO SCREENING BILATERAL. HISTORY: Routine mammographic screening. COMPARISON: 08/16/2018. This study was interpreted with the benefit of Computerized Aided Detection (CAD). FINDINGS: Breast Density: HETERO The breast parenchyma is heterogenously dense, which could reduce sensitivity of mammography. Breast parenchyma level C.. A postbiopsy clip is noted within the right upper outer quadrant. Coarse and scattered calcifications are benign. Multiple circumscribed nodules bilaterally are likely cysts and are likely benign. There are no suspicious masses, microcalcifications or architectural distortion. BI-RADS CATEGORY: 2 BENIGN FINDING(S). RECOMMENDED FOLLOW-UP: 12M 12 MONTH FOLLOW-UP. PQRS compliance statement: Patient information was entered into a reminder system with a target due date 09/03/2020 for the next mammogram. Mammography is a sensitive method for finding small breast cancers, but it does not detect them all and is not a substitute for careful clinical examination. A negative mammogram does not negate a clinically suspicious finding and should not result in delay in biopsying a clinically suspicious abnormality. "Our facility is accredited by the [employer] Mammography Program."
== END | disposition home or self-care (01) ==
LOC: MAMMO 09:17
PROVIDERS: ATTEND Family Medicine
DX: Z12.31 Encounter for screening mammogram for malignant neoplasm of breast (principal); N64.89 Other specified disorders of breast
CPT/HCPCS: 77063; 77067

== ENCOUNTER → 2020-09-08 | Outpatient (CLI) | payer BC, MEDICARE ==
[2018-08-22 08:10] VITALS: BP 121/78
[~2020-09-08] MED LIST changes: +AMLO-186 PO; -AMLO5TAB10 PO; -CALC600T4 PO; +CALC600T6 PO; +MULT-445 PO; -MULT1TAB52 PO
--- NOTE | 2020-09-08 17:14 | RAD ---
DATE: 09/08/2020 7:47 AM EXAM: MAMMO ALDO SCREENING BILATERAL HISTORY: Screening COMPARISON: 09/03/2019, 08/16/2018, 08/14/2017 Bilateral CC and MLO views of the breasts were performed. Bilateral breast tomosynthesis was performed in CC and MLO projections. This study was interpreted with the benefit of Computerized Aided Detection (CAD). FINDINGS: Breast Density: SCATTERED The breast parenchyma shows scattered fibroglandular densities. Breast parenchyma level B Negative left mammogram. Slightly dorsal to a benign ashanti shaped biopsy marker in the middle third upper outer right breast is an asymmetry approximately 6.5 cm from the nipple that is associated with an enlarging intramammary lymph node in the posterior upper outer right breast. This needs additional imaging will full-field lateral view and targeted ultrasound of the lateral right breast. IMPRESSION: Right breast asymmetry, findings for which additional imaging is advised. BI-RADS CATEGORY: 0 INCOMPLETE: NEEDS ADDITIONAL IMAGING EVALUATION AND/OR PRIOR MAMMOGRAMS FOR COMPARISON. RECOMMENDED FOLLOW-UP: ADD ADDITIONAL IMAGING The patient will be contacted to return for additional imaging and a supplemental report will follow. PQRS compliance statement: Patient information was entered into a reminder system with a target due date for the next mammogram. Mammography is a sensitive method for finding small breast cancers, but it does not detect them all and is not a substitute for careful clinical examination. A negative mammogram does not negate a clinically suspicious finding and should not result in delay in biopsying a clinically suspicious abnormality. "Our facility is accredited by the [employer] Mammography Program."
== END ==
LOC: MAMMO 07:44
PROVIDERS: ATTEND Family Medicine
DX: Z12.31 Encounter for screening mammogram for malignant neoplasm of breast (principal); N64.89 Other specified disorders of breast
CPT/HCPCS: 77063; 77067

== ENCOUNTER → 2020-09-29 | Outpatient (CLI) | payer BC, MEDICARE ==
[2018-08-22 08:10] VITALS: BP 121/78
--- NOTE | 2020-09-29 11:27 | RAD ---
Examination: US BREAST RT, MG DIAGNOSTICUNILAT MAMMO History: Reason: ABNORMAL MAMMOGRAM CALLBACK / Spl. Instructions: / History: Comparison/Correlation: None Technique: Diagnostic right diagnostic digital mammogram images were obtained. CAD was utilized Findings: Breast Tissue Density B : There are scattered areas of fibroglandular density. Persistence of the right upper breast mass is seen on spot compression. Biopsy clip marker is presen t involving the right upper outer breast. Limited ultrasound imaging of the right upper outer breast and axilla was performed. A benign-appeari ng lymph node is present measuring up to 0.7 cm x 0.7 cm x 0.4 cm. No suspicious masses. Right axilla is unremarkable. IMPRESSION: No mammographic evidence of malignancy. Benign-appearing lymph node is present corresponding to mammo graphic finding. A Recommend routine screening. BI-RADS category 1: Negative. The images were reviewed with computer aided detection. Patient information is entered into the reminder system with a target due date for the next screening mammogram. Mammography is the most sensitive method for finding small breast cancers, but it does not detect the m all and is not a substitute for careful clinical examination. A negative mammogram does not negate a clinically suspicious finding and should not result in delay in biopsying a clinically suspicious a bnormality. "Our facility is accredited by the [employer] Mammography Program Electronically signed by: Neri Lorenz MD (09/29/2020 3:03 PM) [id number]
== END ==
LOC: MAMMO 10:26
PROVIDERS: ATTEND Family Medicine
DX: R92.8 Other abnormal and inconclusive findings on diagnostic imaging of breast (principal); N63.10 Unspecified lump in the right breast, unspecified quadrant
CPT/HCPCS: 76641; 77065

== ENCOUNTER → 2021-09-29 | Outpatient (CLI) | payer BC ==
[2018-08-22 08:10] VITALS: BP 121/78
[~2021-09-29] MED LIST changes: -CALC600T6 PO; +CALC600T60 PO
--- NOTE | 2021-09-29 16:28 | RAD ---
Bilateral digital screening 2-D and 3-D (digital breast tomosynthesis) mammogram: Reason for examination: Routine screening. Comparison: Mammograms from 09/29/2020, 09/08/2020, 09/03/2019. Interpretation was made with the benefit of CAD. FINDINGS: Breast density: Category B. There are scattered areas of fibroglandular density. There is an area of possible architectural distortion in the left breast the 12:30 position about the 7 to 8 cm from the nipple. There may be some very faint calcifications in this region. Patient gives no history of previous left breast biopsy. There are multiple bilateral oval circumscribed masses in the breasts which is a benign finding. No o ther groups of abnormal calcifications are seen. A biopsy marker is noted in the right upper outer qu adrant. No malignant appearing calcifications is seen. IMPRESSION: Possible architectural distortion in the 12:30 position of the left breast at middle depth. Further e valuation with a diagnostic left mammogram is recommended, including 3-D rolled CC views and mediolat eral views. 2-D spot magnification compression views would be helpful to evaluate for calcifications in this region. Assessment: There is 0. Incomplete. Additional imaging is recommended. Recommendation: Diagnostic left mammogram. The patient will receive a letter with the results in the mail. Patient information will be entered i nto the mammography reminder system with a target recall date for the next mammogram. A reminder fede er will be generated. Electronically signed by: Donna Joy MD (09/29/2021 4:25 PM) [id number]
== END ==
LOC: MAMMO 08:13
PROVIDERS: ATTEND Family Medicine
DX: Z12.31 Encounter for screening mammogram for malignant neoplasm of breast (principal)
CPT/HCPCS: 77063; 77067

== ENCOUNTER → 2021-10-05 | Outpatient (CLI) | payer BC ==
[2018-08-22 08:10] VITALS: BP 121/78
--- NOTE | 2021-10-05 09:16 | RAD ---
EXAM: Left breast diagnostic mammogram with tomosynthesis; left breast sonogram. HISTORY: 70-year-old female presents for evaluation of possible architectural distortion within the l eft breast demonstrated on a screening mammogram dated 09/29/2021. TECHNIQUE: Full-field digital 2D and 3D tomosynthesis images of the left breast and spot magnificatio n views left breast are obtained for evaluation. Sonographic imaging of the left breast targeted to s ites of mammographic abnormality was also performed. COMPARISON: 09/29/2021, 09/29/2020, 09/08/2020 BREAST PARENCHYMAL DENSITY: Level B - Scattered fibroglandular densities. FINDINGS: There is no convincing architectural distortion within the left breast at the 12:00 positio n with the additional mammographic views. There are multiple benign-appearing circumscribed nodular d ensities throughout the left breast. These are similar compared to prior studies. The multiplicity an d stability favors a benign etiology such as cysts. There is a cluster of calcifications within the 3 :00 position of the left breast centered approximately 9 cm from the nipple. Dedicated spot magnifica tion views demonstrate heterogeneous calcifications morphology. There are vessels in the region of ca lcifications in the craniocaudal projection. However, the calcifications do not appear to be vascular in the true lateral projection. Sonographic imaging of the left breast demonstrates a 4.6 mm cyst with internal echoes likely due to debris at the 12:00 position 3 cm from the nipple. There is a more simple appearing cyst measuring 7. 4 mm at the 12:00 position 5 cm from the nipple. There is a 1.5 cm lymph node with benign fatty hilum and thin cortex at the 12:00 position 6 cm from the nipple. There are benign axillary lymph nodes me asuring up to 2.2 cm in long axis. IMPRESSION: 1. Cluster of heterogeneous calcifications at the 3:00 position of the left breast approximately 9 cm from the nipple. Stereotactic guided biopsy is recommended for definitive diagnosis. This can be per formed from a lateral approach. 2. No convincing persistent architectural distortion within the left breast with additional mammograp hic views. 3. Multiple benign-appearing cysts and benign intramammary lymph node within the left breast. 4. BI-RADS Category 4: Suspicious abnormality. Stereotactic guided biopsy is recommended. These findings and recommendations were discussed with the patient and communicated to the referring physician ophthalmic medical assistant at 0915 hours on 10/05/2021. If your mammogram demonstrates that you have dense breast tissue, which could hide abnormalities, an d if you have other risk factors for breast cancer that have been identified, you might benefit from supplemental screening tests that may be suggested by your ordering physician. Dense breast tissue, in and of itself, is a relatively common condition. This information is not provided to cause undue concern, but rather to raise your awareness and to promote discussion with your physician regarding t he presence of other risk factors, in addition to dense breast tissue. A report of your mammography r esults will be sent to you and your physician. You should contact your physician if you have any que stions or concerns regarding this report. Mammography is a sensitive method for finding small breast cancers, but it does not detect them all a nd is not a substitute for careful clinical examination. A negative mammogram does not negate a clin ically suspicious finding and should not result in delay in biopsying a clinically suspicious abnorma lity. PQRS compliance statement - Patient information was entered into a reminder system with a target due date for the next mammogram. "Our facility is accredited by the [employer] Mammography [employer]." Electronically signed by: Yaquelin Marcial MD (10/05/2021 9:13 AM) [id number]
== END ==
LOC: MAMMO 07:59
PROVIDERS: ATTEND Family Medicine
DX: R92.1 Mammographic calcification found on diagnostic imaging of breast (principal); R92.2 Inconclusive mammogram
CPT/HCPCS: 76641; 77065; G0279; 77061

== ENCOUNTER → 2021-11-24 | Outpatient (CLI) | payer BC ==
[2018-08-22 08:10] VITALS: BP 121/78
[~2021-11-24] MED LIST changes: +LIDOCAINE 1% Multi-Dose 20 ML VIAL. INJ ONE; +LIDOCAINE 2%/EPI 1:100,000 20 ML VIAL. INJ ONE
--- NOTE | 2021-11-24 14:18 | RAD ---
EXAM: Stereotactic left breast biopsy; specimen radiograph; post-biopsy clip placement; unilateral po st-biopsy mammogram. HISTORY: 71-year-old female presents for stereotactic guided biopsy of clustered microcalcifications within the left breast demonstrated on a mammogram dated 10/05/2021. TECHNIQUE AND FINDINGS: The procedure and its risks and benefits were discussed with the patient. Ris ks discussed included, but were not limited to, pain, infection, bleeding and need for repeat biopsy. The patient provided verbal and written consent. A timeout was performed. The patient's breast was placed in craniocaudal compression at the stereotactic biopsy unit and mammo graphic images were obtained. The calcifications of concern were localized using stereotaxis. The ski n overlying this region was then sterilely prepped and infiltrated with a few cc 1% lidocaine for loc al anesthesia. Deeper soft tissue anesthesia was administered with epinephrine in 1% lidocaine. A sma ll skin incision was made and the biopsy device was advanced and appropriate positioning was confirme d with additional images. Subsequently, multiple core biopsy samples were obtained with vacuum assistance. A plain radiograph o f the specimen was obtained, demonstrating inclusion of the calcifications of interest. Then, a post- biospy clip was advanced to the site of biopsy using the same guidance technique. Prolonged compressi on was maintained given evidence of a hematoma within the biopsy bed during clip placement. Subsequen tly, a sterile bandage was placed, and the patient was transferred to the mammography suite for crani ocaudal and mediolateral oblique views. The post-biopsy mammogram demonstrates the biopsy clip in expected position. There is a surrounding h ematoma and ecchymosis. The patient tolerated the procedure without difficulty and was discharged to home in stable condition with post-biospy care instructions, with attention to the aforementioned hem atoma. IMPRESSION: Stereotactic absent clustered microcalcifications within the left breast and clip placeme nt. An addendum to this report will be submitted when pathology results are available. Electronically signed by: Yaquelin Marcial MD (11/24/2021 2:16 PM) [id number]
== END | disposition home or self-care (01) ==
LOC: MAMMO 13:04
PROVIDERS: ATTEND Surgery
DX: R92.1 Mammographic calcification found on diagnostic imaging of breast (principal); R92.8 Other abnormal and inconclusive findings on diagnostic imaging of breast; I10 Essential (primary) hypertension; K21.9 Gastro-esophageal reflux disease without esophagitis; M19.90 Unspecified osteoarthritis, unspecified site; Z79.82 Long term (current) use of aspirin; Z79.899 Other long term (current) drug therapy; Z91.013 Allergy to seafood; Z88.8 Allergy status to other drugs, medicaments and biological substances; Z98.890 Other specified postprocedural states
CPT/HCPCS: 19081; 77065; J3490